=== PATIENT | male | born 1940 | race Caucasian/White ===

== ENCOUNTER 2017-09-15 15:25 | Inpatient (IN) ==
--- NOTE | 2017-09-15 15:45 | Emergency Department Note ---
Disposition Clinical Impression: Testicular abscess, Hyperglycemia Disposition: Admitted As Inpatient Condition: Good Time of Disposition: 16:07 Male Urogenital HPI - General Chief complaint: ED Urogenital-Male Stated complaint: Testicular Abscess Time Seen by Provider: 09/15/17 15:38 Source: patient, EMS Mode of arrival: ambulatory Limitations: no limitations Nursing Notes Reviewed: Yes Vital Signs Reviewed: Yes - History of Present Illness HPI Narrative: 77-year-old male with a history of hypertension, diabetes, COPD presents for evaluation for a testicular pain and swelling. Patient states symptom onsets been over the past 3 weeks. Notes worsening swelling of the left testicle. Notes redness and tenderness on palpation. Patient was seen at the [facility] where workup was initiated. Patient had a testicular ultrasound at the [facility] which showed concerns of a neoplastic process versus infectious process. Patient notes dysuria. Patient denies any chest pain or fevers. Patient denies any abdominal pain. Patient states that he was recently on antibiotics 3 weeks ago but not on any antibiotics currently. - Related Data Home Medications Medication Instructions Recorded Confirmed Acyclovir [Zovirax] 400 mg PO BID 09/14/15 09/14/17 Amlodipine Bes/Olmesartan Med 2.5 mg PO QAM 09/14/15 09/14/15 Aspirin/Calcium Carbonate/Mag 325 mg PO QAM 09/14/15 09/14/17 [Aspirin Buffered 325 mg Tab] Atorvastatin Calcium [Lipitor] 40 mg PO HS 09/14/15 09/14/17 Clopidogrel [Plavix] 75 mg PO DAILY 09/14/15 09/14/17 Lisinopril [Zestril] 80 mg PO QAM 09/14/15 09/14/17 Meclizine HCl [Verticalm] 25 mg PO TID 09/14/15 09/14/17 Omeprazole [PriLOSEC] 20 mg PO DAILY 09/14/15 09/14/17 Cyclobenzaprine [Flexeril] 10 mg PO ONCE 09/14/17 09/14/17 Ibuprofen [Motrin] 800 mg PO Q8HR 09/14/17 09/14/17 Metoprolol [Lopressor] 25 mg PO BID 09/14/17 09/14/17 Naproxen [Naprosyn] 500 mg PO BID 09/14/17 09/14/17 glipiZIDE [Glucotrol] 5 mg PO 0800 09/14/17 09/14/17 Previous Rx's Medication Instructions Recorded HYDROcodone/Acet 5/325 mg [[place] 1 tab PO Q4H PRN 3 Days #14 tab 09/14/17 5-325 mg] Allergies Allergy/AdvReac Type Severity Reaction Status Date / Time No Known Allergies Allergy Unverified 09/14/17 13:56 All systems ED: reviewed and negative except as stated. Constitutional: Denies: fever Cardiovascular: Denies: chest pain Respiratory: Denies: cough, dyspnea Gastrointestinal: Denies: abdominal pain, nausea, vomiting Past Medical History - Past Medical History Source: patient, old records reviewed Medical history: Reports: CVA, diabetes, GERD, hyperlipidemia, hypertension, other Surgical history: Reports: other Psychiatric history: Reports: no psych history - Social History Smoking Status: Former smoker Smokeless Tobacco Status: No Alcohol use: Reports: none Drug use: Reports: none Physical Exam - General Limitations: no limitations General appearance: alert, in no apparent distress, obese - Head Head exam: normal inspection - Eye Eye exam: Present: normal appearance - ENT ENT exam: normal exam, normal oropharynx, mucous membranes moist - Neck Neck exam: Present: normal inspection - Chest Chest inspection: Present: normal inspection, symmetric chest wall rise - Respiratory Respiratory exam: Present: prolonged expiratory phase. Absent: respiratory distress - Cardiovascular Cardiovascular exam: Present: regular rate, normal rhythm. Absent: systolic murmur - Male exam: Present: testicular tenderness, scrotal swelling (Tenderness and redness on the left testicle.), other (candidia in the inguinal folds) - Neurological Exam Neurological exam: Present: alert, oriented X3, CN II-XII intact - Skin Skin exam: Present: warm, dry, intact, normal color Course Course Narrative: Patient's records reviewed show that he had electrolytes and CBC ordered at the [facility]. Patient does have a leukocytosis of 13.4. Hemoglobin 11.9. Sodium 133. Glucose of 435. Creatinine of 1.7. Will discuss the patient's case with urology. - Reevaluation(s) Reevaluation #1: Patient family at bedside. Discussed plan with family and patient. Time: 16:09 Reevaluation #2: Urology is at bedside in the ED. Time: 16:54 Vital Signs Temperature 98.1 F 09/15/17 15:32 Pulse Rate 81 07/18/18 15:32 Respiratory Rate 14 09/15/17 15:32 Blood Pressure 110/76 09/15/17 15:32 O2 Sat by Pulse Oximetry 97 09/15/17 15:32 Temperature 98.1 F 09/15/17 15:32 Pulse Rate 81 09/15/17 15:32 Respiratory Rate 14 09/15/17 15:32 Blood Pressure 110/76 09/15/17 15:32 O2 Sat by Pulse Oximetry 97 09/15/17 15:32 Oxygen Delivery Oxygen Delivery Room Air Urogenital-Male - MDM Narrative Medical decision making narrative: Patient presents with concerns of testicular abscess. This information was discussed with the urology who recommends admission to the hospital and will see the patient consult. Patient was covered for broad-spectrum antibiotics. Patient does not appear toxic. Tana's gangrene was considered on the differential however makes diagnosis less likely given the timeframe as well as the patient's physical exam. Patient does have Belkys within the inguinal fold however there is no crepitus. The patient does have induration and redness over the left testicle consistent with an abscess. Patient's labs are reviewed from the [facility]. Labs were not repeated in the ED. Patient be admitted to possible service for continued evaluation and monitoring. - Lab Data Lab Results 09/15/17 Range/Units 16:03 Urine Color Yellow (Yellow) Urine Clarity Cloudy A (Clear) Urine pH 5.0 (5.0-8.0) pH Units Ur Specific [place] 1.026 H (1.010-1.025) Urine Protein Trace (Neg-Trace) mg/dL Urine Glucose (UA) >=1000 H (Normal) mg/dL Urine Ketones Negative (Negative) mg/dL Urine Blood Moderate H (Negative) Urine Nitrite Negative (Negative) Urine Bilirubin Small H (Negative) Urine Urobilinogen Normal (Normal) mg/dL Ur Leukocyte Esterase Small H (Negative) Urine Microscopic RBC 50-100 H (0-3) per hpf Urine Microscopic WBC 15-30 H (0-3) per hpf Ur Squamous Epith Cells Many H (None-Few) per lpf Urine Bacteria Few (None-Few) per hpf Hyaline Casts Many H (None-Few) per lpf Urine Mucus Moderate H (Few) - Radiology Data Radiology results reviewed: Yes I reviewed the patient's radiology results. [facility] [place] Situation: Demographics Background: Presenting Complaint Assessment: Vital Signs, Course and respsone to treatment, Patient/Family Expectation Recommendation: Barrier(s) to disposition, Recommendation based on pending studies, treatments, or consults aGma Report Given to: Dr. Jeramie Malloy Repor Time: 16:26
[2017-09-15] MEDS ORDERED: 0.9 % Sodium Chloride 1,000 ML IVC ONE (15:46)
[2017-09-15] MEDS ORDERED: *HR* FentaNYL (PF) 100 MCG/2 ML VIAL IVP ONE (15:46)
[2017-09-15] MEDS ORDERED: Piperacillin/Tazobactam 3.375 GM in 0.9 % Sodium Chloride Mini Bag 100 ML IVPB ONE (16:07)
[2017-09-15 16:13] LABS: Bilirubin,Urine Small (Negative); Blood,Urine Moderate (Negative); Clarity,Urine Cloudy (Clear); Color,Urine Yellow (Yellow); Glucose,Urine (UA) >=1000 mg/dL (Normal); Ketones,Urine Negative (Negative); Leukocyte Esterase,Urine Small (Negative); Nitrite,Urine Negative (Negative); Protein,Urine Trace mg/dL (Neg-Trace); Specific Gravity,Urine 1.026 (1.010-1.025); Urobilinogen,Urine Normal (Normal)
[2017-09-15 16:22] LABS: Bacteria,Urine Few per hpf (None-Few); RBC,Urine 50-100 per hpf (0-3); Squamous Epithelial Cell,Urine Many per lpf (None-Few); WBC,Urine 15-30 per hpf (0-3)
[2017-09-15 16:32] LABS: Hyaline Casts,Urine Many per lpf (None-Few); Mucus,Urine Moderate (Few)
[2017-09-15] MEDS ORDERED: Lidocaine -MPF 1% 5 ML AMPUL ONE (16:47)
[2017-09-15] MEDS ORDERED: Naloxone 0.4 MG/ML INJ IVP PRN (17:04)
--- NOTE | 2017-09-15 17:17 | Urology - Consult Note ---
Date of Encounter: 09/15/17 Time of Encounter: 17:12 - Assessment and Plan (1) Abscess of scrotal wall Current Visit: Yes Status: Acute Assessment and plan: Patient was prepped and draped in normal sterile fashion. Timeout procedure performed. I then instilled 5 mL of lidocaine over the obvious fluctuant area. I then used a 15 blade scalpel to incise through this area and drain the patient scrotal wall abscess. Cultures were obtained. Packing was then placed. Patient tolerated well. Area was probed with finger prior to packing. Broad spectrum antibiotics until cultures return Patient will need to continue with twice a day dressing changes. We will perform first change tomorrow (2) Acute cystitis with hematuria Current Visit: Yes Status: Acute Assessment and plan: Urine for urine culture and to continue broad-spectrum antibiotics until cultures return. Urology CN:JOSE ANTONIO Consult date: 09/15/17 Reason for consult Urology: Other (scrotal abscess) Requesting physician: Christopher Bundy History of present illness: Andrew is a 77-year-old male known to me secondary to elevated PSA. Patient was scheduled for prostate biopsy next week. Patient has been having problems with bilateral scrotal swelling for the past couple weeks. He has been on multiple different by mouth antibiotics as an outpatient. He presents emergency department today secondary to worsening pain and swelling on the left hemiscrotum. Patient states his pain is a 10 out of 10 sharp in nature located on the left hemiscrotum with no radiation. Patient denies any significant fevers at home. Past Med Surg Social Fam HX - Past Medical History Medical history: CVA, diabetes, GERD, hyperlipidemia, hypertension, other Additional medical history: AORTIC ANEURYSM 06/2014 Psychiatric history: no psych history - Past Surgical History Surgical History: other Additional surgical history: LEFT FOOT SX. ABDOMINAL ANEURYSM WITH SURGICAL REPAIR - Social History Smoking Status: Former smoker Smokeless Tobacco Status: No Alcohol use: none Drug use: none - Family History Father Adopted: No Living Status: Hx Family Cardiac Disorders: Yes Hx Family Respiratory Disorders: Yes Hx Family Cancer: No Hx Family GI Disorders: No Hx Family Endocrine Disorder: No Hx Family Neuromuscular Disorders: No Hx Family Neurologic Disorders: No Hx Family HEENT Disorders: No Hx Family Autoimmune Disorders: No Medications and Allergies Acyclovir [Zovirax] 400 mg PO BID 09/14/15 [History] Amlodipine Bes/Olmesartan Med 2.5 mg PO QAM 09/14/15 [History] Aspirin/Calcium Carbonate/Mag [Aspirin Buffered 325 mg Tab] 325 mg PO QAM [History] Atorvastatin Calcium [Lipitor] 40 mg PO HS 09/14/15 [History] Clopidogrel [Plavix] 75 mg PO DAILY 09/14/15 [History] Lisinopril [Zestril] 80 mg PO QAM 09/14/15 [History] Meclizine HCl [Verticalm] 25 mg PO TID 09/14/15 [History] Omeprazole [PriLOSEC] 20 mg PO DAILY 09/14/15 [History] Cyclobenzaprine [Flexeril] 10 mg PO ONCE 09/14/17 [History] HYDROcodone/Acet 5/325 mg [[place] 5-325 mg] 1 tab PO Q4H PRN 3 Days #14 tab 09/14 [Rx] Ibuprofen [Motrin] 800 mg PO Q8HR 09/14/17 [History] Metoprolol [Lopressor] 25 mg PO BID 09/14/17 [History] Naproxen [Naprosyn] 500 mg PO BID 09/14/17 [History] glipiZIDE [Glucotrol] 5 mg PO 0800 09/14/17 [History] 3 Allergy/AdvReac Type Severity Reaction Status Date / Time No Known Allergies Allergy Unverified 09/14/17 13:56 Review of Systems - Constitutional no chills, no fever(s) - EENT Nose, mouth and throat: no dizziness - Cardiovascular no chest pain, no edema - Respiratory no cough, no dyspnea - Gastrointestinal no abdominal pain, no nausea, no vomiting - Genitourinary as per HPI - Musculoskeletal no back pain - Integumentary no erythema - Neurological no confusion - Psychiatric no anxiety, no depression - Hematologic/Lymphatic no easy bleeding, no lymphadenopathy - Allergic/Immunologic no wheezing Exam Initial Vital Signs Temp Pulse Resp BP Pulse Ox 98.1 F 81 14 110/76 97 09/15/17 15:32 09/15/17 15:32 09/15/17 15:32 09/15/17 15:32 09/15/17 15:32 General/Neuological: alert and oriented x 3 Eyes: normal pupils, non-icteric Neck: no lymphadenopathy noted, supple to touch Cardiovascular: RRR, no murmurs Respiratory: normal respiratory effort, clear bilaterally ABD: soft, nontender, no masses palpated, good bowel sounds Back: no pain on percussion bilaterally : normal phallus, left hemiscrotum with obvious fluctuance, difficult to palpate left testicle secondary to pain, right testicle normal, normal meatus, normal perineum Skin: no rashes noted Musculoskeletal: normal gait, FROMx4 Urology Results - Labs Abnormal lab results Urine Clarity Cloudy (Clear) A 09/15/17 16:03 Ur Specific [place] 1.026 (1.010-1.025) H 09/15/17 16:03 Urine Glucose (UA) >=1000 mg/dL (Normal) H 09/15/17 16:03 Urine Blood Moderate (Negative) H 09/15/17 16:03 Urine Bilirubin Small (Negative) H 09/15/17 16:03 Ur Leukocyte Esterase Small (Negative) H 09/15/17 16:03 Urine Microscopic RBC 50-100 per hpf (0-3) H 09/15/17 16:03 Urine Microscopic WBC 15-30 per hpf (0-3) H 09/15/17 16:03 Ur Squamous Epith Cells Many per lpf (None-Few) H 09/15/17 16:03 Hyaline Casts Many per lpf (None-Few) H 09/15/17 16:03 Urine Mucus Moderate (Few) H 09/15/17 16:03 All other labs normal. Consult Discharge Plan - Plan Referrals: Judy Adams, NEUROPHYSIOLOGY TECH [Primary Care Provider] -
--- NOTE | 2017-09-15 18:01 | Internal Med History&Physical ---
Date of Encounter: 09/16/17 Time of Encounter: 18:00 Internal Medicine - H&P: HPI Chief complaint: Testicular abscess History of present illness: Mr. Gomez is a 77 year old male with p,mh of diabetes mellitus, CVA presenting with complaints of scrotal swelling for about 3 weeks. He says he has been on multiple different antibiotics as an outpatient. Patient comes in today with worsening pain and swelling of the left scrotum. Pain was 10/10 sharp and complains fo idfficulty walking. He was seen by urology in the ER and has had an incision and drainage done. He denies any fevers at home Past Med Surg Social Fam HX - Past Medical History Medical history: CVA, diabetes, GERD, hyperlipidemia, hypertension, other Additional medical history: AORTIC ANEURYSM 06/2014 Psychiatric history: no psych history - Past Surgical History Surgical History: other Additional surgical history: LEFT FOOT SX. ABDOMINAL ANEURYSM WITH SURGICAL REPAIR - Social History Smoking Status: Former smoker Smokeless Tobacco Status: No Alcohol use: none Drug use: none - Family History Father Adopted: No Living Status: Hx Family Cardiac Disorders: Yes Hx Family Respiratory Disorders: Yes Hx Family Cancer: No Hx Family GI Disorders: No Hx Family Endocrine Disorder: No Hx Family Neuromuscular Disorders: No Hx Family Neurologic Disorders: No Hx Family HEENT Disorders: No Hx Family Autoimmune Disorders: No Internal Medicine - H&P: Meds Acyclovir [Zovirax] 400 mg PO BID 09/14/15 [History] Atorvastatin Calcium [Lipitor] 40 mg PO HS 09/14/15 [History] Meclizine HCl [Verticalm] 25 mg PO TID 09/14/15 [History] Omeprazole [PriLOSEC] 20 mg PO DAILY 09/14/15 [History] Cyclobenzaprine [Flexeril] 10 mg PO BID 09/14/17 [History] HYDROcodone/Acet 5/325 mg [[place] 5-325 mg] 1 tab PO Q4H PRN 3 Days #14 tab 09/14 [Rx] Ibuprofen [Motrin] 800 mg PO Q8HR 09/14/17 [History] Metoprolol [Lopressor] 25 mg PO BID 09/14/17 [History] Naproxen [Naprosyn] 500 mg PO BID 09/14/17 [History] glipiZIDE [Glucotrol] 5 mg PO 0800 09/14/17 [History] Lisinopril [Zestril] 10 mg PO DAILY 09/15/17 [History] hydroCHLOROthiazide [Hydrochlorothiazide] 25 mg PO DAILY 09/15/17 [History] Albuterol Sulfate [Albuterol Inhaler] 2 puff IH Q6HR PRN 09/16/17 [History] Budesonide [Pulmicort Flexhaler 180mcg] 180 mcg IH BID 09/16/17 [History] Fluticasone/Salmeterol [Advair Hfa 115-21 Mcg Inhaler] 2 puff PO BID 09/16/17 [ History] Glimepiride [Amaryl] 1 mg PO DAILY 09/16/17 [History] Montelukast [Singulair] 10 mg PO HS 09/16/17 [History] 3 Allergy/AdvReac Type Severity Reaction Status Date / Time No Known Allergies Allergy Unverified 09/14/17 13:56 All Systems PM: A 10-system review of systems was performed and is negative for pertinent findings except as documented above in the HPI. - Constitutional Constitutional: no chills, no fever(s), no night sweats - EENT Eyes: no change in vision, no discharge, no pain, no photophobia Ears: no ear discharge, no ear pain, no tinnitus Nose, mouth and throat: no dysphagia, no nasal discharge, no neck pain, no sore throat - Cardiovascular Cardiovascular ROS IM: no chest pain, no diaphoresis, no dyspnea, no lightheadedness, no palpitations, no syncope - Respiratory Respiratory: no cough, no dyspnea, no wheezing, no excessive phlegm production - Gastrointestinal Gastrointestinal: no abdominal pain, no diarrhea, no hematemesis, no hematochezia, no melena, no nausea, no vomiting - Genitourinary Genitourinary ROS male: dysuria, genital pain, scrotal swelling, testicular pain - Musculoskeletal Musculoskeletal ROS IM: no numbness, no tingling - Integumentary Integumentary IM: no rash, no unusual bruising - Neurological Neurological ROS: no confusion, no convulsions, no focal weakness, no numbness, no tingling, no tremor(s) - Hematologic/Lymphatic Hematologic/Lymphatic: no easy bruising - Constitutional Vitals: Temp Pulse Resp BP Pulse Ox 98.1 F 81 16 116/93 97 09/15/17 15:32 09/15/17 15:32 09/15/17 17:54 09/15/17 17:54 09/15/17 15:32 - Head Head exam: Present: atraumatic, normocephalic - Eye Eye exam: Present: PERRL, conjuntiva pink, sclera anicteric Pupils: Present: PERRL - Neck Neck exam general surgery: Present: supple, trachea midline. Absent: lymphadenopathy - Respiratory Respiratory exam: Present: CTAB. Absent: accessory muscle use, rales, rhonchi, wheezes - Cardiovascular Cardiovascular exam: Present: RRR, +S1, +S2. Absent: diastolic murmur, gallop, rubs, systolic murmur - GI/Abdominal GI/Abdominal exam: Present: normal bowel sounds, soft, no peritoneal signs. Absent: distended, tenderness - exam: Present: scrotal swelling - Extremities Exam Extremities exam: Present: warm, radial pulses palpable and symmetrical. Absent : calf tenderness, cyanotic, pedal edema - Neurological Exam Neurological exam: Present: CN II-XII intact, oriented X3, no focal deficits. Absent: pronater drift, facial droop, speech deficit - Skin Skin exam: Present: dry, intact Internal Med - H&P Results - Labs CBC & Chem 7: 09/16/17 05:38 09/16/17 05:38 - Impressions ITS Impressions Chest X-Ray 09/15/17 17:16 IMPRESSION: No acute cardiopulmonary process. D/ / Magda Starks MD / Magda Starks MD Interpreting Provider: Magda Starks MD - Assessment and plan (1) Testicular abscess Current Visit: Yes Status: Acute Assessment and plan: s/p incision and drainage. Urology following. Has been started on vanc and zosyn (2) Diabetes mellitus Current Visit: No Status: Chronic Assessment and plan: On insulin as needed Qualifiers: Diabetes mellitus type: type 2 Diabetes mellitus complication status: with circulatory complication Diabetes mellitus complication detail: with other circulatory complications Qualified Code(s): E11.59 - Type 2 diabetes mellitus with other circulatory complications; Z79.4 - terminal system operator (current) use of insulin (3) Urinary tract infection Current Visit: Yes Status: Acute Assessment and plan: Continue antibiotics. F/U urine cultures Qualifiers: Urinary tract infection type: acute cystitis Qualified Code(s): N30.00 - Acute cystitis without hematuria (4) DVT prophylaxis Current Visit: Yes Status: Acute Assessment and plan: Heparin sc - Time Spent With Patient Total time spent is greater than 50% in coordination of care (as documented) at patient's floor/unit and/or counseling patient:
[2017-09-15 18:22] LABS: Basophils # 0.1 K/mcL (0.0-0.2); Basophils % 0.4 %; Eosinophils # 0.6 K/mcL (0.0-0.6); Eosinophils % 4.5 %; Hematocrit 37.2 % (37.5-50.1); Hemoglobin 12.2 g/dL (12.9-16.9); Lymphocytes # 1.4 K/mcL (0.6-4.6); Lymphocytes % 11.2 %; Mean Corpuscular HGB Conc 32.8 g/dL (31.6-35.5); Mean Corpuscular Hemoglobin 29.3 pg (28.0-33.3); Mean Corpuscular Volume 89.4 fL (83.0-100.0); Mean Platelet Volume 11.4 fL (9.4-12.4); Monocytes # 0.8 K/mcL (0.0-1.3); Neutrophils # 9.9 K/mcL (1.6-8.9); Platelet Count 229 K/mcL (140-400); Red Blood Count 4.16 M/mcL (4.19-5.50); Red Cell Distribution Width 14.7 % (11.5-14.5); Segmented Neutrophils % 76.9 %
[2017-09-15 18:35] LABS: BUN/Creatinine Ratio 23 (6-26); Blood Urea Nitrogen 31 mg/dL (8-23); Calcium 9.1 mg/dL (8.6-10.3); Carbon Dioxide 23 mEq/L (23-29); Chloride 97 mEq/L (98-107); Glucose 331 mg/dL (70-105); Osmolality,Calculated 291 (280-300); Potassium 4.3 mEq/L (3.5-5.1); Sodium 131 mEq/L (136-145); eGFR For African Americans > 60 (> 60); eGFR For Non-African Americans 51 (> 60)
--- NOTE | 2017-09-15 19:12 | Emergency Department Note ---
Disposition Clinical Impression: Testicular abscess, Hyperglycemia Disposition: Admitted As Inpatient Condition: Good General Adult HPI - General Chief complaint: ED Urogenital-Male Stated complaint: Testicular Abscess Time Seen by Provider: 09/15/17 15:38 Source: patient, EMS Mode of arrival: ambulatory Limitations: no limitations - History of Present Illness Pain Scale: 0 - Related Data Home Medications Medication Instructions Recorded Confirmed Acyclovir [Zovirax] 400 mg PO BID 09/14/15 09/15/17 Atorvastatin Calcium [Lipitor] 40 mg PO HS 09/14/15 09/15/17 Meclizine HCl [Verticalm] 25 mg PO TID 09/14/15 09/15/17 Omeprazole [PriLOSEC] 20 mg PO DAILY 09/14/15 09/15/17 Cyclobenzaprine [Flexeril] 10 mg PO BID 09/14/17 09/15/17 Ibuprofen [Motrin] 800 mg PO Q8HR 09/14/17 09/15/17 Metoprolol [Lopressor] 25 mg PO BID 09/14/17 09/15/17 Naproxen [Naprosyn] 500 mg PO BID 09/14/17 09/15/17 glipiZIDE [Glucotrol] 5 mg PO 0800 09/14/17 09/15/17 Lisinopril [Zestril] 10 mg PO DAILY 09/15/17 09/15/17 hydroCHLOROthiazide 25 mg PO DAILY 09/15/17 09/15/17 [Hydrochlorothiazide] Previous Rx's Medication Instructions Recorded HYDROcodone/Acet 5/325 mg [[place] 1 tab PO Q4H PRN 3 Days #14 tab 09/14/17 5-325 mg] Allergies Allergy/AdvReac Type Severity Reaction Status Date / Time No Known Allergies Allergy Unverified 09/14/17 13:56 Constitutional: Denies: fever Cardiovascular: Denies: chest pain Respiratory: Denies: cough, dyspnea Gastrointestinal: Denies: abdominal pain, nausea, vomiting Past Medical History - Past Medical History Medical history: Reports: CVA, diabetes, GERD, hyperlipidemia, hypertension, other Surgical history: Reports: other Psychiatric history: Reports: no psych history - Social History Smoking Status: Former smoker Smokeless Tobacco Status: No Alcohol use: Reports: none Drug use: Reports: none Physical Exam - General Limitations: no limitations General appearance: alert, in no apparent distress, obese Course Vital Signs Temperature 98.1 F 09/15/17 15:32 Pulse Rate 81 09/15/17 15:32 Respiratory Rate 14 09/15/17 15:32 Blood Pressure 110/76 09/15/17 15:32 O2 Sat by Pulse Oximetry 97 09/15/17 15:32 Temperature 98.1 F 09/15/17 15:32 Pulse Rate 81 09/15/17 15:32 Respiratory Rate 16 09/15/17 17:54 Blood Pressure 116/93 09/15/17 17:54 O2 Sat by Pulse Oximetry 97 09/15/17 15:32 Oxygen Delivery Oxygen Delivery Room Air Medical Decision Making - Lab Data Result diagrams: 09/15/17 18:01 Lab Results 09/15/17 Range/Units 16:03 Urine Color Yellow (Yellow) Urine Clarity Cloudy A (Clear) Urine pH 5.0 (5.0-8.0) pH Units Ur Specific [place] 1.026 H (1.010-1.025) Urine Protein Trace (Neg-Trace) mg/dL Urine Glucose (UA) >=1000 H (Normal) mg/dL Urine Ketones Negative (Negative) mg/dL Urine Blood Moderate H (Negative) Urine Nitrite Negative (Negative) Urine Bilirubin Small H (Negative) Urine Urobilinogen Normal (Normal) mg/dL Ur Leukocyte Esterase Small H (Negative) Urine Microscopic RBC 50-100 H (0-3) per hpf Urine Microscopic WBC 15-30 H (0-3) per hpf Ur Squamous Epith Cells Many H (None-Few) per lpf Urine Bacteria Few (None-Few) per hpf Hyaline Casts Many H (None-Few) per lpf Urine Mucus Moderate H (Few)
[2017-09-15] MEDS: Acyclovir 200 MG CAPSULE PO SCH (20:20)
[2017-09-15] MEDS: 0.9 % Sodium Chloride 1,000 ML IVC SCH (20:39)
--- NOTE | 2017-09-15 20:43 | Emergency Department Note ---
Disposition Clinical Impression: Testicular abscess, Hyperglycemia Disposition: Admitted As Inpatient Condition: Good General Adult HPI - General Chief complaint: ED Urogenital-Male Stated complaint: Testicular Abscess Time Seen by Provider: 09/15/17 15:38 Source: patient, EMS Mode of arrival: ambulatory Limitations: no limitations - History of Present Illness Pain Scale: 0 - Related Data Home Medications Medication Instructions Recorded Confirmed Acyclovir [Zovirax] 400 mg PO BID 09/14/15 09/15/17 Atorvastatin Calcium [Lipitor] 40 mg PO HS 09/14/15 09/15/17 Meclizine HCl [Verticalm] 25 mg PO TID 09/14/15 09/15/17 Omeprazole [PriLOSEC] 20 mg PO DAILY 09/14/15 09/15/17 Cyclobenzaprine [Flexeril] 10 mg PO BID 09/14/17 09/15/17 Ibuprofen [Motrin] 800 mg PO Q8HR 09/14/17 09/15/17 Metoprolol [Lopressor] 25 mg PO BID 09/14/17 09/15/17 Naproxen [Naprosyn] 500 mg PO BID 09/14/17 09/15/17 glipiZIDE [Glucotrol] 5 mg PO 0800 09/14/17 09/15/17 Lisinopril [Zestril] 10 mg PO DAILY 09/15/17 09/15/17 hydroCHLOROthiazide 25 mg PO DAILY 09/15/17 09/15/17 [Hydrochlorothiazide] Previous Rx's Medication Instructions Recorded HYDROcodone/Acet 5/325 mg [[place] 1 tab PO Q4H PRN 3 Days #14 tab 09/14/17 5-325 mg] Allergies Allergy/AdvReac Type Severity Reaction Status Date / Time No Known Allergies Allergy Unverified 09/14/17 13:56 Constitutional: Denies: fever Cardiovascular: Denies: chest pain Respiratory: Denies: cough, dyspnea Gastrointestinal: Denies: abdominal pain, nausea, vomiting Past Medical History - Past Medical History Medical history: Reports: CVA, diabetes, GERD, hyperlipidemia, hypertension, other Surgical history: Reports: other Psychiatric history: Reports: no psych history - Social History Smoking Status: Former smoker Smokeless Tobacco Status: No Alcohol use: Reports: none Drug use: Reports: none Physical Exam - General Limitations: no limitations General appearance: alert, in no apparent distress, obese Course Vital Signs Temperature 98.1 F 09/15/17 15:32 Pulse Rate 81 09/15/17 15:32 Respiratory Rate 14 09/15/17 15:32 Blood Pressure 110/76 09/15/17 15:32 O2 Sat by Pulse Oximetry 97 09/15/17 15:32 Temperature 97.4 F L 09/15/17 18:35 Pulse Rate 88 09/15/17 18:35 Respiratory Rate 17 09/15/17 18:35 Blood Pressure 131/81 09/15/17 18:35 O2 Sat by Pulse Oximetry 92 09/15/17 18:35 Oxygen Delivery Oxygen Delivery Room Air Medical Decision Making - Lab Data Result diagrams: 09/15/17 18:01 09/15/17 18:01 Lab Results 09/15/17 Range/Units 16:03 Urine Color Yellow (Yellow) Urine Clarity Cloudy A (Clear) Urine pH 5.0 (5.0-8.0) pH Units Ur Specific [place] 1.026 H (1.010-1.025) Urine Protein Trace (Neg-Trace) mg/dL Urine Glucose (UA) >=1000 H (Normal) mg/dL Urine Ketones Negative (Negative) mg/dL Urine Blood Moderate H (Negative) Urine Nitrite Negative (Negative) Urine Bilirubin Small H (Negative) Urine Urobilinogen Normal (Normal) mg/dL Ur Leukocyte Esterase Small H (Negative) Urine Microscopic RBC 50-100 H (0-3) per hpf Urine Microscopic WBC 15-30 H (0-3) per hpf Ur Squamous Epith Cells Many H (None-Few) per lpf Urine Bacteria Few (None-Few) per hpf Hyaline Casts Many H (None-Few) per lpf Urine Mucus Moderate H (Few) Attestation Statement - Attestation Attestation: I examined this patient and my medical decision-making was reviewed with the Resident Physician. I agree with the documented findings, disposition and treatment plan as described except to the extent set forth below. Non-toxic appearing diabetic male with superficial ballotable cutaneous scrotal abscess and normal vital signs. Abscess is superficial, adjacent induration involves only the left adam-scrotum, I can feel the base of the area of induration and it is localized to the scrotal skin, does not involve the testicle. Other than cutaneous candidiasis in the groin folds, there are no skin findings in the proximal thighs or perinueum, specifically no warmth, induration, crepitus, tenderness, swelling. His non-toxic appearance, lack of tachycardia or fever, and a superficial cutaneous abscess localized to the left adam-scrotum excludes Tana's gangrene/necrotizing fasciitis on clinical grounds. Abscess drained by Urology in ED, IV abx started prior to his arrival. Admitted to the floor in stable condition.
[2017-09-15] MEDS: Piperacillin/Tazobactam 3.375 GM in 0.9 % Sodium Chloride Mini Bag 100 ML IVPB SCH (23:52)
[2017-09-16] MEDS: *HR* HYDROcodone/Acet 5/325 mg TABLET PO PRN (00:02)
[2017-09-16] MEDS: *HR* Heparin 5,000 UNIT/ML VIAL SQ SCH ×2 (05:38→16:41)
[2017-09-16] MEDS: 0.9 % Sodium Chloride 1,000 ML IVC SCH (06:00)
[2017-09-16 06:57] LABS: Basophils % 0.4 %; Eosinophils # 0.6 K/mcL (0.0-0.6); Eosinophils % 6.4 %; Hematocrit 36.5 % (37.5-50.1); Hemoglobin 11.7 g/dL (12.9-16.9); Immature Granulocytes % 0.7 % (0-4); Lymphocytes # 1.3 K/mcL (0.6-4.6); Lymphocytes % 14.5 %; Mean Corpuscular HGB Conc 32.1 g/dL (31.6-35.5); Mean Corpuscular Hemoglobin 28.4 pg (28.0-33.3); Mean Corpuscular Volume 88.6 fL (83.0-100.0); Mean Platelet Volume 11.8 fL (9.4-12.4); Monocytes # 0.6 K/mcL (0.0-1.3); Monocytes % 6.1 %; Neutrophils # 6.5 K/mcL (1.6-8.9); Platelet Count 223 K/mcL (140-400); Red Blood Count 4.12 M/mcL (4.19-5.50); Red Cell Distribution Width 14.8 % (11.5-14.5); Segmented Neutrophils % 71.9 %
[2017-09-16 07:08] LABS: BUN/Creatinine Ratio 25 (6-26); Blood Urea Nitrogen 25 mg/dL (8-23); Calcium 8.8 mg/dL (8.6-10.3); Carbon Dioxide 23 mEq/L (23-29); Chloride 102 mEq/L (98-107); Glucose 334 mg/dL (70-105); Magnesium 1.7 mg/dL (1.6-2.6); Osmolality,Calculated 297 (280-300); Phosphorous 3.2 mg/dL (2.7-4.5); Potassium 4.1 mEq/L (3.5-5.1); Sodium 135 mEq/L (136-145); eGFR For African Americans > 60 (> 60); eGFR For Non-African Americans > 60 (> 60)
--- NOTE | 2017-09-16 07:36 | Urology Progress Note ---
Date of Encounter: 09/16/17 Time of Encounter: 07:34 - Assessment and Plan (1) Abscess of scrotal wall Current Visit: Yes Status: Acute Assessment and plan: bid wet to dry packing changes. awaiting cultures. (2) Acute cystitis with hematuria Current Visit: Yes Status: Acute Assessment and plan: continue abx. will obtain bladder scan to make sure patient not in urinary retention. Progress Note Narrative: Patient seen. feeling better. packing fell out multiple times last night. minimal uop. Objective Initial Vital Signs Temp Pulse Resp BP Pulse Ox 98.1 F 81 14 110/76 97 09/15/17 15:32 09/15/17 15:32 09/15/17 15:32 09/15/17 15:32 09/15/17 15:32 - General physical appearance Present: well developed, well nourished, no distress - Respiratory Present: normal expansion, normal respiratory effort - Abdomen Present: soft. Absent: tender - Genitourinary Present: normal penis with no external lesions, other (left testicle firm but not sig enlarged. wound probed and open. no additional pockets of pus. ) - Labs 09/16/17 05:38 09/16/17 05:38 Diabetes panel 09/15/17 09/16/17 Range/Units 18:01 05:38 Sodium 131 L 135 L (136-145) mEq/L Potassium 4.3 4.1 (3.5-5.1) mEq/L Chloride 97 L 102 (98-107) mEq/L Carbon Dioxide 23 23 (23-29) mEq/L BUN 31 H 25 H (8-23) mg/dL Creatinine 1.36 H 1.00 (0.70-1.30) mg/dL Glucose 331 H 334 H (70-105) mg/dL Calcium 9.1 8.8 (8.6-10.3) mg/dL Calcium panel 09/15/17 09/16/17 Range/Units 18:01 05:38 Calcium 9.1 8.8 (8.6-10.3) mg/dL Phosphorus 3.2 (2.7-4.5) mg/dL Pituitary panel 09/15/17 09/16/17 Range/Units 18:01 05:38 Sodium 131 L 135 L (136-145) mEq/L Potassium 4.3 4.1 (3.5-5.1) mEq/L Chloride 97 L 102 (98-107) mEq/L Carbon Dioxide 23 23 (23-29) mEq/L BUN 31 H 25 H (8-23) mg/dL Creatinine 1.36 H 1.00 (0.70-1.30) mg/dL Glucose 331 H 334 H (70-105) mg/dL Calcium 9.1 8.8 (8.6-10.3) mg/dL Adrenal panel 09/15/17 09/16/17 Range/Units 18:01 05:38 Sodium 131 L 135 L (136-145) mEq/L Potassium 4.3 4.1 (3.5-5.1) mEq/L Chloride 97 L 102 (98-107) mEq/L Carbon Dioxide 23 23 (23-29) mEq/L BUN 31 H 25 H (8-23) mg/dL Creatinine 1.36 H 1.00 (0.70-1.30) mg/dL Glucose 331 H 334 H (70-105) mg/dL Calcium 9.1 8.8 (8.6-10.3) mg/dL Consult Discharge Plan - Plan Referrals: Judy Adams, DENTAL PROFESSIONAL [Primary Care Provider] -
[2017-09-16] MEDS ORDERED: *HR* GlipiZIDE 5 MG TABLET PO SCH (08:00)
[2017-09-16] MEDS: Piperacillin/Tazobactam 3.375 GM in 0.9 % Sodium Chloride Mini Bag 100 ML IVPB SCH ×2 (09:16→16:41)
[2017-09-16] MEDS: Acyclovir 200 MG CAPSULE PO SCH ×2 (09:17→20:03)
[2017-09-16] MEDS: Aspirin Enteric Coated 325 MG Tablet PO SCH (09:17)
[2017-09-16] MEDS ORDERED: Dextrose Gel 15 GM/37.5 ML TUBE PO PRN ×2 (12:52)
[2017-09-16] MEDS ORDERED: *HR* Dextrose 50 % in Water (Syg) 50 ML SYRINGE IVP PRN (12:52)
[2017-09-16] MEDS ORDERED: D5% in Water 1,000 ML IVC PRN (12:52)
--- NOTE | 2017-09-16 12:52 | Event Note ---
Date of Encounter: 09/16/17 Time of Encounter: 12:47 Patient is a 77-year-old male who was admitted for a left scrotal wall abscess. Dr. Terrell incised and drained the abscess yesterday evening at the emergency room bedside. Today, a bladder scan was performed showing 500 mL of retained urine. I prepped and draped the patient normal sterile fashion. I placed an 18F coude catheter without difficulty and immediately noticed return of clear urine. Approximately 800cc of clear urine immediately drained into bedside bag. Patient tolerated procedure well and reports feeling much more comfort after catheter placement.
[2017-09-16] MEDS ORDERED: Insulin LISPRO 300 UNITS/3 ML VIAL SQ SCH (16:30)
[2017-09-16] MEDS: amLODIPine 5 MG TABLET PO SCH (16:40)
[2017-09-16] MEDS: *HR* Metformin 500 MG TABLET PO SCH (16:42)
[2017-09-16] MEDS: Insulin LISPRO 300 UNITS/3 ML VIAL SQ SCH ×2 (16:43→16:52)
[2017-09-16] MEDS: *HR* GlipiZIDE 5 MG TABLET PO SCH (20:03)
[2017-09-16] MEDS: Budesonide/Formoterol 80/4.5 MDI IH SCH (22:24)
--- NOTE | 2017-09-16 22:51 | Internal Med Progress Note ---
Date of Encounter: 09/16/17 Time of Encounter: 22:40 - Assessment and plan (1) Abscess of scrotal wall Current Visit: Yes Status: Acute (2) Acute cystitis with hematuria Current Visit: Yes Status: Acute (3) NILDA (acute kidney injury) Current Visit: Yes Status: Acute (4) Type 2 diabetes mellitus with hyperglycemia Current Visit: Yes Status: Acute Qualifiers: Diabetes mellitus trade manager insulin use: without fdc use Qualified Code(s): E11.65 - Type 2 diabetes mellitus with hyperglycemia (5) Essential (primary) hypertension Current Visit: Yes Status: Chronic - Time Spent With Patient Total time spent is greater than 50% in coordination of care (as documented) at patient's floor/unit and/or counseling patient: 25 - 35 minutes - Subjective Interval history: .. The patient feels better. He had incision and drainage of scrotal wall abscess done by urology yesterday evening. The pain in the area of scrotum is mild/ moderate. Denies chest pain. Denies difficulty breathing, coughing and wheezing. He denies urinary symptoms. OBJECTIVE: .. Skin: Free of rash and discoloration. See notes from urology referring to his scrotum. ENMT: Oral/pharyngeal mucosa is normal in appearance. Eyes: Sclera is white. There is no discharge from eyes. Respiratory: Normal breath sounds; no crackles or wheezes. CV: Heart is regular; no gallop or murmur. GI: Abdomen is soft and not tender. There is no palpable mass or visceromegaly. Neuro: There is no focal deficits. ASSESSMENT AND PLAN: .. Abscess of her scrotal wall/acute cystitis with hematuria. See notes from urology. The patient had incision and drainage of the abscess. Will continue IV vancomycin, IV Zosyn and IV fluconazole. Cultures are pending. Mild acute kidney injury. Resolved with IV fluids. Type 2 diabetes mellitus with hyperglycemia. He is on diabetic diet and glipizide. We will continue Humalog sliding scale. Essential hypertension. Seems to be under control. He was taking lisinopril and HCTZ at home. - Constitutional Vitals: Temp Pulse Resp BP Pulse Ox 98.0 F 77 19 143/78 93 09/16/17 18:30 09/16/17 18:30 09/16/17 18:30 09/16/17 18:30 09/16/17 20:07 Internal Medicine: Result - Labs CBC & Chem 7: 09/16/17 05:38 09/16/17 05:38 Labs: Short CBC 09/16/17 Range/Units 05:38 WBC 9.0 (4.3-11.1) K/mcL Hgb 11.7 L (12.9-16.9) g/dL Hct 36.5 L (37.5-50.1) % Plt Count 223 (140-400) K/mcL Neutrophils # 6.5 (1.6-8.9) K/mcL BMP 09/16/17 05:38 Sodium 135 L Potassium 4.1 Chloride 102 Carbon Dioxide 23 BUN 25 H Creatinine 1.00 Glucose 334 H Calcium 8.8 Consult Discharge Plan - Plan Referrals: Judy Adams, EXPENDITURE REQUISITION CLERK [Primary Care Provider] -
[2017-09-17] MEDS: Aspirin Enteric Coated 325 MG Tablet PO SCH (11:06)
[2017-09-17] MEDS: Acyclovir 200 MG CAPSULE PO SCH ×2 (11:06→21:52)
[2017-09-17] MEDS: *HR* Metformin 500 MG TABLET PO SCH ×2 (11:06→18:35)
[2017-09-17] MEDS: amLODIPine 5 MG TABLET PO SCH (11:06)
[2017-09-17] MEDS: *HR* GlipiZIDE 5 MG TABLET PO SCH ×2 (11:07→21:52)
[2017-09-17] MEDS: Piperacillin/Tazobactam 3.375 GM in 0.9 % Sodium Chloride Mini Bag 100 ML IVPB SCH ×3 (11:07→18:30)
[2017-09-17] MEDS: Insulin LISPRO 300 UNITS/3 ML VIAL SQ SCH ×3 (11:16→18:29)
--- NOTE | 2017-09-17 11:37 | Urology Progress Note ---
Date of Encounter: 09/17/17 Time of Encounter: 11:35 - Assessment and Plan (1) Abscess of scrotal wall Current Visit: Yes Status: Acute Assessment and plan: continue twice a day dressing changes. Broad-spectrum antibiotics. Needs tighter control of blood sugar (2) Acute cystitis with hematuria Current Visit: Yes Status: Acute Assessment and plan: Patient with urinary retention with indwelling catheter. Patient will need to keep catheter in place. Progress Note Narrative: Patient seen. packing replaced. Patient without fevers. Cultures pending. Patient's blood sugar still poorly controlled. Catheter draining clear urine Objective Initial Vital Signs Temp Pulse Resp BP Pulse Ox 98.1 F 81 14 110/76 97 09/15/17 15:32 09/15/17 15:32 09/15/17 15:32 09/15/17 15:32 09/15/17 15:32 - General physical appearance Present: well developed, well nourished - Abdomen Present: soft. Absent: tender - Genitourinary Present: other (Left hemiscrotum with minimal swelling packing replaced and wound probed without additional pockets of pus noted) - Labs 09/16/17 05:38 09/16/17 05:38 Consult Discharge Plan - Plan Referrals: Judy Adams, SOCCER COACH [Primary Care Provider] -
[2017-09-17] MEDS: Budesonide/Formoterol 80/4.5 MDI IH SCH ×2 (14:09→22:35)
[2017-09-17] MEDS: Fluconazole 100 MG/50 ML 100 MG/50 ML BAG IVPB SCH (14:55)
[2017-09-17] MEDS: *HR* Heparin 5,000 UNIT/ML VIAL SQ SCH ×2 (18:28→21:48)
--- NOTE | 2017-09-17 20:51 | Internal Med Progress Note ---
Date of Encounter: 09/17/17 Time of Encounter: 20:50 - Assessment and plan (1) Abscess of scrotal wall Current Visit: Yes Status: Acute (2) Acute cystitis with hematuria Current Visit: Yes Status: Acute (3) Urinary retention Current Visit: Yes Status: Acute (4) Type 2 diabetes mellitus with hyperglycemia Current Visit: Yes Status: Acute Qualifiers: Diabetes mellitus [facility] insulin use: without marine oil terminal superintendent use Qualified Code(s): E11.65 - Type 2 diabetes mellitus with hyperglycemia (5) Essential (primary) hypertension Current Visit: Yes Status: Chronic - Time Spent With Patient Total time spent is greater than 50% in coordination of care (as documented) at patient's floor/unit and/or counseling patient: 25 - 35 minutes - Subjective Interval history: .. The patient feels pretty good. He had incision and drainage of scrotal wall abscess done by urology the day before yesterday evening. The pain in the area of scrotum is mild he has developed urinary retention. Noel catheter has been inserted.. Denies chest pain. Denies difficulty breathing, coughing and wheezing. He denies urinary symptoms. OBJECTIVE: .. Skin: Free of rash and discoloration. See notes from urology referring to his scrotum. ENMT: Oral/pharyngeal mucosa is normal in appearance. Eyes: Sclera is white. There is no discharge from eyes. Respiratory: Normal breath sounds; no crackles or wheezes. CV: Heart is regular; no gallop or murmur. GI: Abdomen is soft and not tender. There is no palpable mass or visceromegaly. Neuro: There is no focal deficits. ASSESSMENT AND PLAN: .. Abscess of her scrotal wall/acute cystitis with hematuria. See notes from urology. The patient had incision and drainage of the abscess. Will continue IV vancomycin, IV Zosyn and IV fluconazole. Cultures are pending. Urinary retention. Noel catheter has been inserted. He will need urology workup for this problem. He has likely BPH with urinary retention. Type 2 diabetes mellitus with hyperglycemia. He is on diabetic diet. We will increase his dose of glipizide. We will start him on metformin and Januvia. We will continue Humalog sliding scale. Essential hypertension. Seems to be under control. He was taking lisinopril and HCTZ at home. - Constitutional Vitals: Temp Pulse Resp BP Pulse Ox 98.8 F 81 16 132/78 92 09/17/17 19:32 09/17/17 19:32 09/17/17 19:32 09/17/17 19:32 09/17/17 19:32 Internal Medicine: Result - Labs CBC & Chem 7: 09/16/17 05:38 09/16/17 05:38 Consult Discharge Plan - Plan Referrals: Judy Adams, RESEARCH PHYSICIAN [Primary Care Provider] -
[2017-09-18] MEDS: Piperacillin/Tazobactam 3.375 GM in 0.9 % Sodium Chloride Mini Bag 100 ML IVPB SCH ×3 (01:44→16:14)
[2017-09-18] MEDS: *HR* Heparin 5,000 UNIT/ML VIAL SQ SCH ×2 (06:02→17:57)
[2017-09-18] MEDS: Budesonide/Formoterol 80/4.5 MDI IH SCH ×2 (07:57→20:04)
--- NOTE | 2017-09-18 10:05 | Urology Progress Note ---
Date of Encounter: 09/18/17 Time of Encounter: 10:03 - Assessment and Plan (1) Abscess of scrotal wall Current Visit: Yes Status: Acute Assessment and plan: Continue twice a day dressing changes. (2) Acute cystitis with hematuria Current Visit: Yes Status: Acute Assessment and plan: Keep catheter in place. Patient will be scheduled for voiding trial next Wednesday. Patient scheduled 745 in my clinic in [place] next Wednesday. Progress Note Narrative: Patient seen this morning. Feeling better. Dressing changes twice a day have been performed. Catheter draining well. Objective Initial Vital Signs Temp Pulse Resp BP Pulse Ox 98.1 F 81 14 110/76 97 09/15/17 15:32 09/15/17 15:32 09/15/17 15:32 09/15/17 15:32 09/15/17 15:32 - General physical appearance Present: well developed, well nourished - Abdomen Present: soft. Absent: tender - Genitourinary Present: other (Scrotum minimal tenderness and minimal erythema. Packing in place.) - Labs 09/16/17 05:38 09/16/17 05:38 Consult Discharge Plan - Plan Referrals: Judy Adams, PHILOSOPHY INSTRUCTOR [Primary Care Provider] -
[2017-09-18] MEDS: *HR* GlipiZIDE 5 MG TABLET PO SCH ×2 (11:06→20:26)
[2017-09-18] MEDS: Acyclovir 200 MG CAPSULE PO SCH ×2 (11:06→20:26)
[2017-09-18] MEDS: amLODIPine 5 MG TABLET PO SCH (11:06)
[2017-09-18] MEDS: Aspirin Enteric Coated 325 MG Tablet PO SCH (11:07)
[2017-09-18] MEDS: *HR* Metformin 500 MG TABLET PO SCH ×2 (11:07→17:57)
[2017-09-18] MEDS: Insulin LISPRO 300 UNITS/3 ML VIAL SQ SCH ×3 (11:08→17:22)
[2017-09-18] MEDS: *HR* SitaGLIPtin 100 MG TABLET PO SCH (11:09)
[2017-09-18] MEDS: Fluconazole 100 MG/50 ML 100 MG/50 ML BAG IVPB SCH (13:51)
[2017-09-18] MEDS ORDERED: Aminoglycoside Consult 1 EACH MC ONE (16:18)
--- NOTE | 2017-09-18 20:04 | Internal Med Progress Note ---
Date of Encounter: 09/18/17 Time of Encounter: 20:02 - Assessment and plan (1) Abscess of scrotal wall Current Visit: Yes Status: Acute (2) Acute cystitis with hematuria Current Visit: Yes Status: Acute (3) Urinary retention Current Visit: Yes Status: Acute (4) Type 2 diabetes mellitus with hyperglycemia Current Visit: Yes Status: Acute Qualifiers: Diabetes mellitus care home insulin use: without continuous churn buttermaker use Qualified Code(s): E11.65 - Type 2 diabetes mellitus with hyperglycemia (5) Essential (primary) hypertension Current Visit: Yes Status: Chronic - Time Spent With Patient Total time spent is greater than 50% in coordination of care (as documented) at patient's floor/unit and/or counseling patient: 25 - 35 minutes - Subjective Interval history: .. The patient feels pretty good. The pain in the area of his scrotum is relatively mild. He had incision and drainage of scrotal wall abscess done by urology. He has dressings changed twice a day. The patient does have indwelling Nole catheter, as he recently developed urinary retention. OBJECTIVE: .. Skin: Free of rash and discoloration. There is a dressing applied to his scrotal area. ENMT: Oral/pharyngeal mucosa is normal in appearance. Eyes: Sclera is white. There is no discharge from eyes. Respiratory: Normal breath sounds; no crackles or wheezes. CV: Heart is regular; no gallop or murmur. GI: Abdomen is soft and not tender. There is no palpable mass or visceromegaly. Neuro: There is no focal deficits. ASSESSMENT AND PLAN: .. Abscess of scrotal wall/acute cystitis with hematuria. See notes from urology. The patient had incision and drainage of the abscess. Wound cultures are not growing any particular organisms. Will discontinue IV vancomycin. We will continue IV Zosyn. Will change his fluconazole from IV to by mouth. We will continue twice a day dressings to that area. Urinary retention. Noel catheter has been inserted. The catheter will stay in for a week or two. Then, the patient will have a voiding trial. Type 2 diabetes mellitus with hyperglycemia. Out of control. He is on diabetic diet. We will continue increased dose of glipizide and Januvia. We will increase his dose of metformin. We will continue Humalog sliding scale. We are trying to avoid switching him to insulin. Essential hypertension. Seems to be under control. He was taking lisinopril and HCTZ at home. - Constitutional Vitals: Temp Pulse Resp BP Pulse Ox 99.2 F 79 15 147/72 92 09/18/17 18:43 09/18/17 18:43 09/18/17 18:43 09/18/17 18:43 09/18/17 18:43 Internal Medicine: Result - Labs CBC & Chem 7: 09/16/17 05:38 09/16/17 05:38 Consult Discharge Plan - Plan Referrals: Judy Adams, BUCK PRESSER [Primary Care Provider] -
[2017-09-19] MEDS: Piperacillin/Tazobactam 3.375 GM in 0.9 % Sodium Chloride Mini Bag 100 ML IVPB SCH ×3 (00:02→15:08)
[2017-09-19] MEDS: *HR* Heparin 5,000 UNIT/ML VIAL SQ SCH ×2 (05:20→18:48)
[2017-09-19 07:29] LABS: BUN/Creatinine Ratio 16 (6-26); Blood Urea Nitrogen 14 mg/dL (8-23); Vancomycin,Trough 7 mcg/mL (5-10); eGFR For African Americans > 60 (> 60); eGFR For Non-African Americans > 60 (> 60)
[2017-09-19] MEDS: Budesonide/Formoterol 80/4.5 MDI IH SCH ×2 (07:52→19:22)
--- NOTE | 2017-09-19 08:49 | Urology Progress Note ---
Date of Encounter: 09/19/17 Time of Encounter: 08:47 - Assessment and Plan (1) Abscess of scrotal wall Current Visit: Yes Status: Acute Assessment and plan: 10 you twice a day dressing changes. Recommend Bactrim DS 1 by mouth twice a day for 7 days. (2) Acute cystitis with hematuria Current Visit: Yes Status: Acute Assessment and plan: Patient to keep urinary catheter in place. Patient with urinary retention. We will plan on starting the patient on Flomax. He will need to go home the Flomax as well. Progress Note Narrative: Patient seen this morning. Patient feeling well. No problems. Objective Initial Vital Signs Temp Pulse Resp BP Pulse Ox 98.1 F 81 14 110/76 97 09/15/17 15:32 09/15/17 15:32 09/15/17 15:32 09/15/17 15:32 09/15/17 15:32 - General physical appearance Present: well developed, well nourished - Abdomen Present: soft. Absent: tender - Genitourinary Present: normal penis with no external lesions, other (Scrotum healing well) - Labs 09/16/17 05:38 09/19/17 06:43 Diabetes panel 09/19/17 Range/Units 06:43 BUN 14 (8-23) mg/dL Creatinine 0.86 (0.70-1.30) mg/dL Pituitary panel 09/19/17 Range/Units 06:43 BUN 14 (8-23) mg/dL Creatinine 0.86 (0.70-1.30) mg/dL Adrenal panel 09/19/17 Range/Units 06:43 BUN 14 (8-23) mg/dL Creatinine 0.86 (0.70-1.30) mg/dL Consult Discharge Plan - Plan Referrals: Judy Adams, NUTRITIONAL SERVICES COOK [Primary Care Provider] -
[2017-09-19] MEDS: *HR* SitaGLIPtin 100 MG TABLET PO SCH (09:46)
[2017-09-19] MEDS: Acyclovir 200 MG CAPSULE PO SCH ×2 (09:46→20:31)
[2017-09-19] MEDS: *HR* Metformin 500 MG TABLET PO SCH ×2 (09:46→18:47)
[2017-09-19] MEDS: Aspirin Enteric Coated 325 MG Tablet PO SCH (09:46)
[2017-09-19] MEDS: Fluconazole 100 MG TABLET PO SCH (09:47)
[2017-09-19] MEDS: amLODIPine 5 MG TABLET PO SCH (09:47)
[2017-09-19] MEDS: *HR* GlipiZIDE 5 MG TABLET PO SCH ×2 (09:48→20:31)
[2017-09-19] MEDS: Insulin LISPRO 300 UNITS/3 ML VIAL SQ SCH ×3 (10:04→17:19)
[2017-09-19] MEDS: *HR* HYDROcodone/Acet 5/325 mg TABLET PO PRN (15:08)
--- NOTE | 2017-09-19 22:52 | Internal Med Progress Note ---
Date of Encounter: 09/19/17 Time of Encounter: 19:00 - Assessment and plan (1) Abscess of scrotal wall Current Visit: Yes Status: Acute (2) Acute cystitis with hematuria Current Visit: Yes Status: Acute (3) Urinary retention Current Visit: Yes Status: Acute (4) Type 2 diabetes mellitus with hyperglycemia Current Visit: Yes Status: Acute Qualifiers: Diabetes mellitus assisted insulin use: without termite control representative use Qualified Code(s): E11.65 - Type 2 diabetes mellitus with hyperglycemia (5) Essential (primary) hypertension Current Visit: Yes Status: Chronic - Time Spent With Patient Total time spent is greater than 50% in coordination of care (as documented) at patient's floor/unit and/or counseling patient: 25 - 35 minutes - Subjective Interval history: .. He has only mild pain in the area of the scrotum. He had incision and drainage of scrotal wall abscess done by urology at admission. He has dressings changed twice a day. The patient does have indwelling Noel catheter, as he recently developed urinary retention. OBJECTIVE: .. Skin: Free of rash and discoloration. There is a dressing applied to his scrotal area. ENMT: Oral/pharyngeal mucosa is normal in appearance. Eyes: Sclera is white. There is no discharge from eyes. Respiratory: Normal breath sounds; no crackles or wheezes. CV: Heart is regular; no gallop or murmur. GI: Abdomen is soft and not tender. There is no palpable mass or visceromegaly. Neuro: There is no focal deficits. ASSESSMENT AND PLAN: .. Abscess of scrotal wall/acute cystitis with hematuria. See notes from urology. He had incision and drainage of the abscess. Wound cultures are not growing any particular organisms. We will continue IV Zosyn and by mouth fluconazole. We will continue twice a day dressings to that area. Urinary retention. Noel catheter has been inserted. The catheter will stay in for a week or two. Then, the patient will have a voiding trial. Type 2 diabetes mellitus with hyperglycemia. Out of control. He is on diabetic diet. He is on metformin, glipizide and Januvia. We will continue Humalog sliding scale. His fingersticks are from today are 190, 278 and 94. We are trying to avoid switching him to insulin. Essential hypertension. Seems to be under control. He was taking lisinopril and HCTZ at home. Disposition: The patient and his family want him to be at the [facility]. The referral has been made. - Constitutional Vitals: Temp Pulse Resp BP Pulse Ox 98.2 F 82 16 122/77 88 09/19/17 19:00 09/19/17 19:00 09/19/17 19:24 09/19/17 19:00 09/19/17 19:24 Internal Medicine: Result - Labs CBC & Chem 7: 09/16/17 05:38 09/19/17 06:43 Labs: BMP 09/19/17 06:43 BUN 14 Creatinine 0.86 Consult Discharge Plan - Plan Referrals: Judy Adams, SEISMIC ENGINEER [Primary Care Provider] -
[2017-09-20] MEDS: Piperacillin/Tazobactam 3.375 GM in 0.9 % Sodium Chloride Mini Bag 100 ML IVPB SCH ×2 (00:54→08:20)
[2017-09-20] MEDS: *HR* Heparin 5,000 UNIT/ML VIAL SQ SCH ×2 (06:14→18:12)
[2017-09-20] MEDS: Budesonide/Formoterol 80/4.5 MDI IH SCH ×2 (07:57→20:32)
[2017-09-20] MEDS: Fluconazole 100 MG TABLET PO SCH (08:19)
[2017-09-20] MEDS: *HR* Metformin 500 MG TABLET PO SCH ×2 (08:19→16:25)
[2017-09-20] MEDS: Aspirin Enteric Coated 325 MG Tablet PO SCH (08:19)
[2017-09-20] MEDS: amLODIPine 5 MG TABLET PO SCH (08:19)
[2017-09-20] MEDS: *HR* SitaGLIPtin 100 MG TABLET PO SCH (08:20)
[2017-09-20] MEDS: Acyclovir 200 MG CAPSULE PO SCH ×2 (08:20→22:19)
[2017-09-20] MEDS: *HR* GlipiZIDE 5 MG TABLET PO SCH ×2 (08:20→22:19)
[2017-09-20] MEDS: Insulin LISPRO 300 UNITS/3 ML VIAL SQ SCH ×3 (08:22→16:17)
[2017-09-20] MEDS: Sulfamethoxazole/Trimeth DS 1 EACH TABLET PO SCH (22:19)
--- NOTE | 2017-09-21 05:31 | Internal Med Progress Note ---
Date of Encounter: 09/20/17 Time of Encounter: 19:00 - Assessment and plan (1) Abscess of scrotal wall Current Visit: Yes Status: Acute (2) Acute cystitis with hematuria Current Visit: Yes Status: Acute (3) Urinary retention Current Visit: Yes Status: Acute (4) Type 2 diabetes mellitus with hyperglycemia Current Visit: Yes Status: Acute Qualifiers: Diabetes mellitus group home insulin use: without appliquer use Qualified Code(s): E11.65 - Type 2 diabetes mellitus with hyperglycemia (5) Essential (primary) hypertension Current Visit: Yes Status: Chronic - Time Spent With Patient Total time spent is greater than 50% in coordination of care (as documented) at patient's floor/unit and/or counseling patient: 25 - 35 minutes - Subjective Interval history: .. The pain in his scrotal area subsided. He came to us with a scrotal wall abscess. He had incision and drainage done by urology at admission. He has dressing changed twice a day. He has indwelling Noel catheter, as he developed urinary retention recently. OBJECTIVE: .. Skin: Free of rash and discoloration. There is a dressing applied to his scrotal area. ENMT: Oral/pharyngeal mucosa is normal in appearance. Eyes: Sclera is white. There is no discharge from eyes. Respiratory: Normal breath sounds; no crackles or wheezes. CV: Heart is regular; no gallop or murmur. GI: Abdomen is soft and not tender. There is no palpable mass or visceromegaly. Neuro: There is no focal deficits. ASSESSMENT AND PLAN: .. Abscess of scrotal wall/acute cystitis with hematuria. See notes from urology. He had incision and drainage of the abscess. Wound cultures are not growing any particular organisms. We will continue IV Zosyn and by mouth fluconazole. We will continue twice a day dressings to that area. Urinary retention. Noel catheter has been inserted. The catheter will stay in for a week or two. Then, the patient will have a voiding trial. Type 2 diabetes mellitus with hyperglycemia. Better control. His fingersticks from today are 163, 214 and 138. We will keep him on metformin, glipizide and Januvia. Essential hypertension. Seems to be under control. He was taking lisinopril and HCTZ at home. Disposition: The patient and his family [facility]. The referral has been made. - Constitutional Vitals: Temp Pulse Resp BP Pulse Ox 98.7 F 74 14 126/68 94 09/21/17 03:46 09/21/17 03:46 09/21/17 03:46 09/21/17 03:46 09/21/17 03:46 Internal Medicine: Result - Labs CBC & Chem 7: 09/16/17 05:38 09/19/17 06:43 - VTE Documentation of Mechanical Device: Intermittent pneumatic compression device Consult Discharge Plan - Plan Referrals: Judy Adams, EXPLORATION MANAGER [Primary Care Provider] -
[2017-09-21] MEDS: *HR* Heparin 5,000 UNIT/ML VIAL SQ SCH (05:42)
[2017-09-21] MEDS: Budesonide/Formoterol 80/4.5 MDI IH SCH (07:56)
[2017-09-21] MEDS: *HR* SitaGLIPtin 100 MG TABLET PO SCH (09:08)
[2017-09-21] MEDS: Acyclovir 200 MG CAPSULE PO SCH (09:08)
[2017-09-21] MEDS: amLODIPine 5 MG TABLET PO SCH (09:08)
[2017-09-21] MEDS: *HR* Metformin 500 MG TABLET PO SCH (09:08)
[2017-09-21] MEDS: *HR* GlipiZIDE 5 MG TABLET PO SCH (09:09)
[2017-09-21] MEDS: Sulfamethoxazole/Trimeth DS 1 EACH TABLET PO SCH (09:09)
[2017-09-21] MEDS: Fluconazole 100 MG TABLET PO SCH (09:09)
[2017-09-21] MEDS: Insulin LISPRO 300 UNITS/3 ML VIAL SQ SCH ×2 (09:09→11:37)
[2017-09-21] MEDS: Aspirin Enteric Coated 325 MG Tablet PO SCH (09:09)
--- NOTE | 2017-09-21 14:20 | Discharge Summary ---
Orders not resulted at time of discharge: Cultures pending of scrotal wound Date of Encounter: 09/21/17 Time of Encounter: 14:16 - Discharge Diagnosis (1) Testicular abscess Priority: Primary Status: Acute (2) Urinary tract infection Priority: Secondary Status: Acute Qualifiers: Urinary tract infection type: acute cystitis Qualified Code(s): N30.00 - Acute cystitis without hematuria (3) Diabetes mellitus Priority: Secondary Status: Chronic Qualifiers: Diabetes mellitus type: type 2 Diabetes mellitus complication status: with circulatory complication Diabetes mellitus complication detail: with other circulatory complications Qualified Code(s): E11.59 - Type 2 diabetes mellitus with other circulatory complications (4) DVT prophylaxis Priority: Secondary Status: Acute Hospital course: Mr. Gomez is a 77 year old male who presented to the [facility] with chief complaint of scrotal pain and swelling. The patient was seen in the emergency department was found to have a scrotal wall abscess the patient was seen by urology who performed an incision and drainage of the abscess. Cultures to date are growing Belkys. The patient also had acute urinary retention and acute cystitis. Urology. The patient is to keep Noel in for the time being. And continue Flomax. Patient is also to continue Bactrim DS and fluconazole for one week and is to have daily wound packing. Discharge discussed with: patient, nurse - Time Spent with Patient Total time spent providing and/or coordinating discharge services: Greater than 30 minutes - Discharge Medications Home Medications: Acyclovir [Zovirax] 400 mg PO BID 09/14/15 [History] Atorvastatin Calcium [Lipitor] 40 mg PO HS 09/14/15 [History] Meclizine HCl [Verticalm] 25 mg PO TID 09/14/15 [History] Omeprazole [PriLOSEC] 20 mg PO DAILY 09/14/15 [History] Cyclobenzaprine [Flexeril] 10 mg PO BID 09/14/17 [History] HYDROcodone/Acet 5/325 mg [Spruce 5-325 mg] 1 tab PO Q4H PRN 3 Days #14 tab 09/14 [Rx] Metoprolol [Lopressor] 25 mg PO BID 09/14/17 [History] glipiZIDE [Glucotrol] 5 mg PO 0800 09/14/17 [History] Lisinopril [Zestril] 10 mg PO DAILY 09/15/17 [History] hydroCHLOROthiazide [Hydrochlorothiazide] 25 mg PO DAILY 09/15/17 [History] Albuterol Sulfate [Albuterol Inhaler] 2 puff IH Q6HR PRN 09/16/17 [History] Budesonide [Pulmicort Flexhaler 180mcg] 180 mcg IH BID 09/16/17 [History] Fluticasone/Salmeterol [Advair Hfa 115-21 Mcg Inhaler] 2 puff PO BID 09/16/17 [ History] Glimepiride [Amaryl] 1 mg PO DAILY 09/16/17 [History] Montelukast [Singulair] 10 mg PO HS 09/16/17 [History] Aspirin Enteric Coated [Aspirin EC] 325 mg PO QAM tablet. 09/21/17 [Rx] Fluconazole [Diflucan] 100 mg PO DAILY 7 Days #7 tablet 09/21/17 [Rx] Naproxen [Naprosyn] 500 mg PO BID PRN #0 09/21/17 [Rx] Sulfamethoxazole/Trimeth DS [Bactrim Ds] 1 each PO BID 7 Days #14 tablet [Rx] Tamsulosin [Flomax] 0.4 mg PO DAILY 30 Days #30 capsule 09/21/17 [Rx] amLODIPine [Norvasc] 2.5 mg PO QAM 30 Days #30 tablet 09/21/17 [Rx] Allergies/Adverse Reactions: 3 Allergy/AdvReac Type Severity Reaction Status Date / Time No Known Allergies Allergy Unverified 09/14/17 13:56 Date of admission: 09/15/17 16:46 Primary care physician: Judy Adams CNP Consults: 09/15/17 18:59 Consult to Hotel Engineer [CONS] Routine Reason for SW Consult: possible rehab - Constitutional Vitals: Temp Pulse Resp BP Pulse Ox 98.0 F 56 18 143/76 92 09/21/17 10:11 09/21/17 10:11 09/21/17 10:11 09/21/17 10:11 09/21/17 10:11 - Patient Status Disposition: Transfer Intermediate Care Fac Condition: Fair Functional capacity at discharge: independent ambulation Overall status at discharge: patient is progressing back to baseline - Discharge Instructions Follow Up With: Angie,Judy L, STREETCAR OPERATOR [Primary Care Provider] - - Diet and Activity Activity: increase activity as tolerated Diet: advance to your usual diet - VTE Documentation of Mechanical Device: Intermittent pneumatic compression device
[2017-09-21 14:27] VITALS: BP 127/77
== END 2017-09-21 16:19 | DRG 728 ==
LOC: EMEROO 15:25 → SUATTDRO 16:46 → 3ANU 16:46
PROVIDERS: ADMIT Student in an Organized Health Care Education/Training Program; ATTEND Internal Medicine